=== PATIENT | female | born 1970 | race Caucasian/White ===

== ENCOUNTER → 2022-04-04 | Emergency (ER) | payer OTHER ==
[~2022-04-04] VITALS: Ht 162.6 cm; Wt 66.7 kg
[~2022-04-04] MED LIST: ACET-2154 PO; BACL10TA PO
--- NOTE | 2022-04-04 13:20 | NUR ---
PT IN NAD; RT ANKLE PAIN 4/10. RLE ELEVATED AND ICE PACK APPLIED. PT DANIELITO WELL
--- NOTE | 2022-04-04 13:59 | NUR ---
Patient discharged to home in stable condition. Written and verbal after care instructions given. Patient verbalizes understanding of instructions. Stressed follow up or return to ER for worsening s/s.
[2022-04-04 14:09] VITALS: BP 138/84
== END | disposition home or self-care (01) ==
LOC: ER 11:53
DX: S99.911A Unspecified injury of right ankle, initial encounter (principal); M25.571 Pain in right ankle and joints of right foot; W10.9XXA Fall (on) (from) unspecified stairs and steps, initial encounter; Y92.89 Other specified places as the place of occurrence of the external cause
CPT/HCPCS: 73610; A4663

== ENCOUNTER 2022-04-05 08:21 | Emergency (ER) | payer OTHER ==
[~2022-04-05] VITALS: Ht 162.6 cm; Wt 65.8 kg
--- NOTE | 2022-04-05 08:42 | NUR ---
MD Mercedes notified.
--- NOTE | 2022-04-05 08:49 | NUR ---
ED MD AT BEDSIDE FOR MSE
[2022-04-05] MEDS ORDERED: ONDANSETRON 4 MG/2 ML VIAL ONE (08:56)
[2022-04-05] MEDS ORDERED: ACETAMINOPHEN 325 MG TABLET ONE (08:56)
[2022-04-05] MEDS ORDERED: ONDANSETRON 4 MG/2 ML VIAL IV ONE (09:00)
[2022-04-05] MEDS ORDERED: ACETAMINOPHEN 325 MG TABLET PO ONE (09:00)
[2022-04-05] MEDS ORDERED: LIDOCAINE 5% PATCH TD ONE ×2 (09:00→09:47)
[2022-04-05 09:07] LABS: HEMATOCRIT 39.1 % (31.2-41.9); MEAN CORPUSCULAR HEMOGLOBIN 26.9 uug (24.7-32.8); MEAN CORPUSCULAR VOLUME 80.9 fL (75.5-95.3); PLATELET COUNT (AUTO) 376 K/uL (179-408)
--- NOTE | 2022-04-05 09:22 | NUR ---
PT WENT TO CT WITH CRAPS MANAGER.
[2022-04-05 09:25] LABS: CREATININE 0.8 mg/dL (0.6-1.3); POTASSIUM 3.9 mmol/L (3.5-5.1)
--- NOTE | 2022-04-05 09:45 | NUR ---
PT IS BACK FROM CT SCAN. HEAD WOUND WAS IRRIGATED WITH NS AND WOUND CLEANED. PT DANIELITO WELL.
[2022-04-05] MEDS ORDERED: BACITRACIN ZINC OINT 15 GM TUBE ONE (10:15)
[2022-04-05] MEDS ORDERED: BACL10TA PO (10:18)
[2022-04-05] MEDS ORDERED: ACET-2154 PO (10:18)
--- NOTE | 2022-04-05 10:29 | NUR ---
WOUND WAS DRESSED WITH BACITRACIN; 4X4 AND A KERLEX WRAP AND SECURED WITH TAPE. PT DANIELITO WELL
[2022-04-05] MEDS ORDERED: NEOMY/BACITRA/POLYMYXIN B OINT UD PACKET TP ONE (10:30)
[2022-04-05 10:56] VITALS: BP 117/75
== END 2022-04-05 10:58 | disposition home or self-care (01) ==
LOC: ER 08:21
DX: S00.01XA Abrasion of scalp, initial encounter (principal); W18.11XA Fall from or off toilet without subsequent striking against object, initial encounter; Y93.E8 Activity, other personal hygiene; Y92.012 Bathroom of single-family (private) house as the place of occurrence of the external cause; R55 Syncope and collapse; M54.2 Cervicalgia; D72.829 Elevated white blood cell count, unspecified
CPT/HCPCS: 99285; 70450; 80048; 85025; 36415; 93005; 72125; J2405; A4663

== ENCOUNTER 2022-09-10 10:31 | Emergency (ER) | payer OTHER ==
[~2022-09-10] VITALS: Ht 162.6 cm; Wt 64.9 kg
--- NOTE | 2022-09-10 10:39 | NUR ---
Patient is a 52 year old female who came in, accompanied by , for left elbow pain. Elbow presents as red and warm to the touch. Patient states this started about a week and a half ago and went away but came back again 2 days ago. Patient states pain level is a 8/10 when moving and with contact. But when the extremity is still pain is a 3/10.
--- NOTE | 2022-09-10 10:48 | NUR ---
at bedside for evaluation.
[2022-09-10] MEDS ORDERED: CEFAZOLIN 1 G VIAL ONE (10:59)
[2022-09-10] MEDS ORDERED: CEFAZOLIN 1 G VIAL IM ONE (11:00)
[2022-09-10] MEDS ORDERED: CEPH500T PO (11:03)
--- NOTE | 2022-09-10 11:10 | NUR ---
Patient passed out after injection of IM antibiotic. Patient states that she had a similar episode in the past. MD notified immediately. Patient arousable 30 seconds afterward. Per MD, patient is to be monitored for another 20 minutes.
--- NOTE | 2022-09-10 11:57 | NUR ---
Patient discharged to home in stable condition. Patient ambulate with brisk, steady gait. Patient is awake, alert and oriented at this time. Written and verbal after care instructions given. Patient verbalizes understanding of instructions. Stressed follow up or return to ER for worsening s/s.
--- NOTE | 2022-09-10 11:57 | NUR ---
Informed patient to come back in about 24 hours to have her elbow rechecked.
[2022-09-10 12:00] VITALS: BP 128/79
[2022-09-11] MEDS ORDERED: SULF1TAB48 PO (14:01)
== END 2022-09-10 11:57 | disposition home or self-care (01) ==
LOC: ER 10:31
DX: M70.32 Other bursitis of elbow, left elbow (principal); R55 Syncope and collapse
CPT/HCPCS: 99283; 96372; J0690; A4663

== ENCOUNTER 2022-09-11 13:12 | Emergency (ER) | payer OTHER ==
[~2022-09-11] VITALS: Ht 162.6 cm; Wt 64.9 kg
[~2022-09-11 13:12] MED LIST changes: +CEPH500T PO
[2022-09-11] MEDS ORDERED: SULFAMETH/TRIMETH 800/160 MG TABLET PO ONE (14:00)
[2022-09-11] MEDS ORDERED: SULFAMETH/TRIMETH 800/160 MG TABLET ONE (14:01)
[2022-09-11] MEDS ORDERED: SULF1TAB48 PO (14:01)
== END 2022-09-11 14:13 | disposition home or self-care (01) ==
LOC: ER 13:14
DX: M70.22 Olecranon bursitis, left elbow (principal); L03.114 Cellulitis of left upper limb; Z90.710 Acquired absence of both cervix and uterus
CPT/HCPCS: A4663

== ENCOUNTER 2022-09-21 12:05 | Emergency (ER) | payer OTHER ==
[~2022-09-21] VITALS: Ht 162.6 cm; Wt 64.9 kg
[~2022-09-21 12:05] MED LIST changes: +SULF1TAB48 PO
[2022-09-21] MEDS ORDERED: DESO15CR11 TP (12:27)
--- NOTE | 2022-09-21 12:42 | NUR ---
PT WAS EVALUATED BY DR BAKER. PT WAS D/C'd TO HOME. D/C INSTRUCTIONS GIVEN TO THE PT BY DR BAKER.
[2022-09-21 12:45] VITALS: BP 125/75
== END 2022-09-21 12:46 | disposition home or self-care (01) ==
LOC: ER 12:05
DX: L25.9 Unspecified contact dermatitis, unspecified cause (principal); Z90.710 Acquired absence of both cervix and uterus; Z79.899 Other long term (current) drug therapy
CPT/HCPCS: A4663